=== PATIENT | female | born 1965 | race Hispanic/Latino ===

== ENCOUNTER 2018-03-13 10:14 | Emergency (ER) | payer MEDICAID ==
[2018-03-13 10:46] VITALS: BP 122/78
--- NOTE | 2018-03-13 12:00 | Emergency Department Report ---
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 Has seen specialist in past. ED Review of Systems ROS: Stated complaint: ITCHING Other details as noted in HPI Constitutional: denies: fever, malaise Gastrointestinal: denies: abdominal pain Skin: rash ED Past Medical Hx - Past Medical History Hx COPD: Yes - Surgical History Past Surgical History?: No - Social History Smoking Status: Current Every Day Smoker Substance Use Type: None - Medications Home Medications: Home Medications Medication Instructions Recorded Confirmed Last Taken Type Hydrocortisone 1% [Hydrocortisone 1 applicatio TP TID #1 tube 03/13/18 Unknown Rx 1% CREAM] hydrOXYzine HCl [Hydroxyzine HCl] 25 mg PO QID PRN #28 tablet 03/13/18 Unknown Rx predniSONE [Deltasone] 3 tab PO QDAY 5 Days #15 tab 03/13/18 Unknown Rx Rash Exam - Exam General: Vital signs noted. No distress. Alert and acting appropriately. HEENT: No Periorbital Edema, No Conjuctival Injection, No Chemosis, No Perioral Edema, No Tongue Edema, No Uvular Edema, No Compromised Airway, No Drooling Lungs: No Labored Respirations, No Retractions, No Use of Accessory Muscles Skin: Yes Erythema, No Other (small erythematous patch right medial bicep sandpaper consistency) ED Course Vital Signs 03/13/18 10:42 Temperature 98.5 F Pulse Rate 89 Respiratory 18 Rate Blood Pressure 122/78 O2 Sat by Pulse 97 Oximetry ED Medical Decision Making - Medical Decision Making Impression: contact dermatitis, rx: prednisone, hydroxyzine, hydrocortisone cream, Ms. Rice explained that benadryl does not work Critical care attestation.: If time is entered above; I have spent that time in minutes in the direct care of this critically ill patient, excluding procedure time. ED Disposition Clinical Impression: Allergic contact dermatitis Disposition: TO HOME OR SELFCARE Is pt being admited?: No Does the pt Need Aspirin: No Condition: Stable Instructions: Contact Dermatitis (ED) Prescriptions: Hydrocortisone 1% [Hydrocortisone 1% CREAM] 1 applicatio TP TID #1 tube hydrOXYzine HCl [Hydroxyzine HCl] 25 mg PO QID PRN #28 tablet PRN Reason: Itching predniSONE [Deltasone] 3 tab PO QDAY 5 Days #15 tab Referrals: JEM DURHAM MD [Primary Care Provider] - 3-5 Days
== END 2018-03-13 12:22 | disposition home or self-care (01) ==
LOC: ED 10:14
DX: L23.9 Allergic contact dermatitis, unspecified cause (principal); F17.200 Nicotine dependence, unspecified, uncomplicated; J44.9 Chronic obstructive pulmonary disease, unspecified
CPT/HCPCS: 99281

== ENCOUNTER 2018-08-27 12:04 | Emergency (ER) | payer MEDICAID ==
[2018-08-27 12:41] VITALS: BP 110/79
--- NOTE | 2018-08-27 12:42 | Emergency Department Report ---
Chief Complaint: Extremity Injury, Lower Stated Complaint: LFT TOE INJURY/PAIN Time Seen by Provider: 08/27/18 12:39 - HPI History of Present Illness: left 4th toe injury today granddaughter walking in front of her and hit her toe against her granddaughters heel ambulatory since accident but has been walking on the side of her foot no foot pain MSE screening note: Focused history and physical exam performed. Due to findings the following was ordered: xr toes ED Disposition for MSE Condition: Stable
--- NOTE | 2018-08-27 13:42 | XRay Report ---
LEFT TOES: History: Left fourth toe injury and pain. Subtle nondisplaced fracture is identified in the proximal phalanx of the fourth digit. This is best demonstrated on the AP view. The remaining toes are intact. No erosive joint pathology. IMPRESSION: Fracture, proximal phalanx, fourth toe.
[2018-08-27] MEDS ORDERED: IBUPROFEN PO ONE (13:46)
--- NOTE | 2018-08-27 13:56 | Emergency Department Report ---
ED Lower Extremity HPI - General Chief Complaint: Extremity Injury, Lower Stated Complaint: LFT TOE INJURY/PAIN Time Seen by Provider: 08/27/18 12:39 Source: patient Mode of arrival: Ambulatory Limitations: Physical Limitation - History of Present Illness Initial Comments: This is a 53-year-old female nontoxic, well nourished in appearance, no acute signs of distress presents to the ED with c/o of left 4th toe pain. Patient stated that she accidentally hit her toe. Patient denies any other trauma. Patient denies any numbness, tingling, fever, chills, nausea, vomiting, chest pain, shortness of breath, headache, stiff neck. Patient denies any joint swelling or joint redness. Patient denies decreased range of motion. Patient stated has decreased gait due to pain. Patient denies any allergies or significant past medical history. MD Complaint: foot injury -: days(s) (1) Injury: Foot: Left Severity: mild Severity scale (0 -10): 8 Improves With: immobilization Worsens With: weight bearing, movement, palpation Associated Symptoms: swelling, able to partially bear weight, ambulatory. denies: snap/pop sensation, numbness, tingling, unable to bear weight - Related Data Previous Rx's Medication Instructions Recorded Last Taken Type Hydrocortisone 1% [Hydrocortisone 1 applicatio TP TID #1 tube 03/13/18 Unknown Rx 1% CREAM] hydrOXYzine HCl [Hydroxyzine HCl] 25 mg PO QID PRN #28 tablet 03/13/18 Unknown Rx predniSONE [Deltasone] 3 tab PO QDAY 5 Days #15 tab 03/13/18 Unknown Rx Acetaminophen/Codeine [Tylenol 1 tab PO Q6H PRN #12 tab 08/27/18 Unknown Rx /Codeine # 3 tab] Ibuprofen [Motrin] 600 mg PO Q8H PRN #20 tablet 08/27/18 Unknown Rx Allergies Allergy/AdvReac Type Severity Reaction Status Date / Time No Known Allergies Allergy Verified 08/27/18 12:05 ED Review of Systems ROS: Stated complaint: LFT TOE INJURY/PAIN Other details as noted in HPI Constitutional: denies: chills, fever Eyes: denies: eye pain, eye discharge, vision change ENT: denies: ear pain, throat pain Respiratory: denies: cough, shortness of breath, wheezing Cardiovascular: denies: chest pain, palpitations Endocrine: no symptoms reported Gastrointestinal: denies: abdominal pain, nausea, diarrhea Genitourinary: denies: urgency, dysuria, discharge Musculoskeletal: denies: back pain, joint swelling, arthralgia Skin: denies: rash, lesions Neurological: denies: headache, weakness, paresthesias Psychiatric: denies: anxiety, depression Hematological/Lymphatic: denies: easy bleeding, easy bruising ED Past Medical Hx - Past Medical History Previous Medical History?: Yes Hx COPD: Yes - Surgical History Past Surgical History?: No - Social History Smoking Status: Current Every Day Smoker Substance Use Type: None - Medications Home Medications: Home Medications Medication Instructions Recorded Confirmed Last Taken Type Hydrocortisone 1% [Hydrocortisone 1 applicatio TP TID #1 tube 03/13/18 Unknown Rx 1% CREAM] hydrOXYzine HCl [Hydroxyzine HCl] 25 mg PO QID PRN #28 tablet 03/13/18 Unknown Rx predniSONE [Deltasone] 3 tab PO QDAY 5 Days #15 tab 03/13/18 Unknown Rx Acetaminophen/Codeine [Tylenol 1 tab PO Q6H PRN #12 tab 08/27/18 Unknown Rx /Codeine # 3 tab] Ibuprofen [Motrin] 600 mg PO Q8H PRN #20 tablet 08/27/18 Unknown Rx ED Physical Exam - General Limitations: Physical Limitation General appearance: alert, in no apparent distress - Head Head exam: Present: atraumatic, normocephalic - Extremities Exam Extremities exam: Present: normal inspection, full ROM, tenderness, normal capillary refill. Absent: joint swelling - Expanded Lower Extremity Exam Left Hip exam: Present: normal inspection, full ROM. Absent: tenderness Upper Leg exam: Present: normal inspection, full ROM. Absent: tenderness Knee exam: Present: normal inspection, full ROM. Absent: tenderness Lower Leg exam: Present: normal inspection, full ROM. Absent: tenderness Ankle exam: Present: normal inspection, full ROM. Absent: tenderness, swelling, abrasion, laceration, ecchymosis, deformity, crepidus, dislocation, erythema, anterior draw sign Foot/Toe exam: Present: normal inspection, full ROM, tenderness, swelling, ecchymosis. Absent: abrasion, laceration, deformity, crepidus, dislocation, erythema, amputation, puncture wound, foreign body, calcaneal tenderness, tenderness at base of 5th metatarsal, nail avulsion, subungual hematoma Neuro vascular tendon exam: Present: no vascular compromise Gait: Positive: observed and limited by pain - Back Exam Back exam: Present: normal inspection, full ROM - Neurological Exam Neurological exam: Present: alert, oriented X3 - Psychiatric Psychiatric exam: Present: normal affect, normal mood - Skin Skin exam: Present: warm, dry, intact, normal color. Absent: rash ED Course Vital Signs 08/27/18 12:40 Temperature 97.7 F Pulse Rate 82 Respiratory 18 Rate Blood Pressure 110/79 O2 Sat by Pulse 95 Oximetry - Reevaluation(s) Reevaluation #1: 08/27/18 14:12 Patient is speaking in full sentences with no signs of distress noted. ED Lower Extremity MDM - Medical Decision Making This is a 53-year-old female that presents with left toe fracture. Patient is stable and was examined by me. X-ray has been obtained and dictated by the radiologist. Patient is notified of the x-ray report with noted by the patient. Patient does have normal gait with no tenderness and no joint swelling. No ecchymosis. no joint redness or swelling. Not warm to touch. No signs of cellulites present. Patient received madan tape with 3rd and 4th toe and received ortho shoe. Patient was instructed to RICE therapy. Patient received Motrin for pain. Patient is discharged with Motrin. At time of discharge, the patient does not seem toxic or ill in appearance. No acute signs of distress noted. Patient agrees to discharge treatment plan of care. No further questions noted by the patient. Critical care attestation.: If time is entered above; I have spent that time in minutes in the direct care of this critically ill patient, excluding procedure time. ED Disposition Clinical Impression: Toe fracture, left Qualifiers: Encounter type: initial encounter Toe: lesser toe Fracture type: closed Phalanx: unspecified phalanx Fracture alignment: nondisplaced Qualified Code(s): S92.505A - Nondisplaced unspecified fracture of left lesser toe(s), initial encounter for closed fracture Disposition: TO HOME OR SELFCARE Is pt being admited?: No Does the pt Need Aspirin: No Condition: Stable Instructions: Toe Fracture (ED), RICE Therapy (ED), Acetaminophen/Codeine (By mouth) Additional Instructions: Follow-up with a orthopedic doctor in 3-5 days or if symptoms worsen and continue return to emergency room as soon as possible. Do not operate any machinery while taking Tylenol with codeine as this may cause drowsiness. Prescriptions: Ibuprofen [Motrin] 600 mg PO Q8H PRN #20 tablet PRN Reason: Pain Acetaminophen/Codeine [Tylenol /Codeine # 3 tab] 1 tab PO Q6H PRN #12 tab PRN Reason: Pain , Severe (7-10) Referrals: PRIMARY CAREMD [Referring] - 3-5 Days ASIF RAGLAND MD [Staff Physician] - 3-5 Days [facility] [Outside] - 3-5 Days Forms: Work/School Release Form(ED)
== END 2018-08-27 14:26 | disposition home or self-care (01) ==
LOC: ED 12:04
DX: S92.912A Unspecified fracture of left toe(s), initial encounter for closed fracture (principal); J44.9 Chronic obstructive pulmonary disease, unspecified; F17.200 Nicotine dependence, unspecified, uncomplicated; W50.0XXA Accidental hit or strike by another person, initial encounter; Y93.89 Activity, other specified; Y92.89 Other specified places as the place of occurrence of the external cause; Y99.8 Other external cause status